=== PATIENT | male | born 1960 | race Caucasian/White ===

== ENCOUNTER 2025-02-27 20:20 | Emergency (ER) | payer OTHER, SELFPAY ==
[2025-02-27 20:22] VITALS: BP 147/79
[2025-02-27 23:51] VITALS: BP 138/79
--- NOTE | 2025-02-28 00:26 | ED.GENMED ---
History of Present Illness
General
Chief Complaint: Flank Pain
Source: patient
Exam Limitations: none
Time Seen by Provider: 02/28/25 00:24
Nursing documentation reviewed up to this point in time: agreed with
History of Present Illness
History of Present Illness:
Note:
CHIEF COMPLAINT(S)
Left-sided flank pain.
HISTORY OF PRESENT ILLNESS
The patient is a 64-year-old male with a past medical history of M�ni�re's disease, hypertension, hyperlipidemia presenting with right-sided pain, reminiscent of previous episodes involving kidney stones. This pain started this past day. The
initial onset of pain is described as being located in the upper back, which is distinct from the patients typical back aches related to overuse. The patient reports a history of previous kidney stones with associated urinary frequency but denies
prior urinary tract infections. Currently, there is no radiation of the pain to the front, and the patient has experienced nausea but denies actual vomiting. The pain has decreased in intensity compared to earlier, indicating possible resolution. No
recent heavy lifting or strain noted, and the patient denies any associated tenderness or muscle soreness upon touch. The patient felt fine yesterday with no similar discomfort. The patient reports chills but has not experienced fever, and they have
been drinking fluids as recommended by medical personnel. No significant discomfort upon recent bathroom visit. He originally presented to urgent care where they did blood work and a urinalysis as well as a plain film of the abdomen which was
concerning for renal stone.
EXTERNAL RECORDS REVIEWED
Reviewed patient first record from earlier today, please see scanned document from provider note section:
White blood cell count showed leukocytosis of 12
BMP done showed elevated BUN to creatinine ratio, did discuss IV fluids however patient reports that he would rather rehydrate orally
Urinalysis was done in urgent care however did opt to also obtain one here in the ER so that we can obtain reflex to culture
PHYSICAL EXAM
- Nursing notes reviewed and vital signs reviewed.
General: Patient is well appearing and in no acute distress; non-toxic
Skin: Warm and dry, no rashes or lesions
Head: Normocephalic, atraumatic
Eyes: Sclera non-icteric. EOMs intact.
Cardiac: Regular rate and rhythm, no murmurs
Peripheral Vascular: No lower extremity swelling or edema
Pulm: Normal respiratory effort, no wheezes, rales, rhonchi
Abdomen: No abdominal tenderness to palpation
Musculoskeletal: No CVA tenderness bilaterally
Neuro: CN II-XII intact, no focal neurologic deficits.
Psychiatric: Appropriate mood and affect.
PROBLEM LIST
Acute Problems:
- Left-sided flank pain
PLAN
- Continue hydration to aid in obtaining a urine sample for culture to rule out infection.
- If discomfort increases or further symptoms develop, consider imaging to check for kidney stones.
- Monitor for any signs of infection, particularly in the context of potential stone passage.
- Patient declined immediate pain medication at this time.
DIFFERENTIAL DIAGNOSIS
The Differential Diagnosis includes, in no particular order and is not limited to:
1. Renal colic due to kidney stones
2. Urinary tract infection
3. Pyelonephritis
4. Musculoskeletal pain
5. Retroperitoneal mass
6. Herpes Zoster
7. Gastrointestinal pathology such as pancreatitis
8. Abdominal aortic aneurysm
9. Intercostal neuralgia
10. Referred pain from spinal pathology
Patient is declining medication for pain and nausea at this time. Patient is declining IV fluids.
CHART REVIEW
No prior ER physician documentation or discharge summaries to review
MDM/DISPOSITION
The patient is a 64-year-old male with a past medical history of M�ni�re's disease, hypertension, hyperlipidemia presenting with right-sided flank pain. He is associate urinary frequency but no burning with urination, no fevers or chills. On
physical exam he is well-appearing in no acute distress. He has no abdominal tenderness, no CVA tenderness, he is afebrile. His urinalysis is not concerning for infection. His CAT scan shows a renal stone with mild hydronephrosis. Discussed
follow-up with urologestefanía and discussed use of Flomax. Patient stable for discharge.
Review of Systems
Review of Systems
All Other Systems: ROS reviewed and negative except as documented in HPI and ROS
Phy Exam
Physical Exam
Physical Exam:
see hpi
Course
Orders/Labs/Results
Orders:
Orders
02/28/25
CT Abd/pel Without Iv Or Oral Urgent
Comment: lab work done at urgent care, scanned into chart
Reason For Exam: right flank pain, hx stones
02/28/25 01:52
Urinalysis Reflex To Culture Urgent
Date Specimen was Collected: 02/28/25
Time Specimen was Collected: 01:50
Urine Microscopic Reflex Cult Urgent
Abnormal Lab Results
02/28/25
01:52
Urine Ketones 1+ A
(Negative)
Ur Occult Blood Reflex 3+ A
(Negative)
Urine RBC 3-6 A /HPF
(0-2)
Urine Bacteria (Reflex) Few A
(Negative)
Vital Signs
Initial and Last Documented VS:
Initial Vital Signs
Temp Pulse Resp BP Pulse Ox
99 F 76 20 147/79 100
02/27/25 20:22 02/27/25 20:22 02/27/25 20:22 02/27/25 20:22 02/27/25 20:22
Last Documented Vital Signs
Temp Pulse Resp BP Pulse Ox
99 F 65 16 135/68 99
02/27/25 20:22 02/28/25 02:32 02/28/25 02:32 02/28/25 02:32 02/28/25 02:32
*Pulse Oximetry
SaO2: 99
Oxygen Mode of Delivery: Room air
Patient hypoxic: no
*Critical Care Note
Total Time (30-74mins, 75-104mins- exclusive of procedures): Not Applicable
ED Attending Note
-
Portions of this chart may have been created with voice recognition software.� Occasional wrong word or��sound alike� substitutions may have occurred due to the inherent limitations of voice recognition software.
Discharge Plan
Departure
Patient Disposition: Home (Routine Discharge)
Date of Disposition: 02/28/25
Time of Disposition: 02:24
Patient with high blood pressure during this ER visit?: Yes
Condition: Good
Discharge Problem:
Kidney stone on right side
Instructions: Flank Pain (DC), How to Strain Your Urine, BLOOD PRESSURE
Prescriptions:
New
tamsulosin [Flomax] 0.4 mg capsule
0.4 mg PO DAILY Qty: 8 0RF
Referrals:
SHO ASHFORD PA [Family Provider, Family Practice]
Pavel Dougherty MD [Active, Urology] - Call in 1-3 days for appt
Activity Restrictions/Additional Instructions:
Flomax has been sent to her pharmacy. Please take 1 tablet once daily until stone passage.
PLEASE RETURN EMERGENCY DEPARTMENT SHOULD YOU DEVELOP AN ACUTE WORSENING OF YOUR PAIN, FEVERS OR CHILLS, BURNING WITH URINATION, ABDOMINAL PAIN, INTRACTABLE NAUSEA OR VOMITING, OR ANY OTHER SIGNS OR SYMPTOMS WORRISOME TO YOU.
Interventions
Interventions:
*Risk Screen - Suicide Last Done: 02/27/25 20:22
*General Assessment Last Done: 02/27/25 20:22
*Neglect/Abuse Screening Last Done: 02/27/25 20:22
*ED COVID-19 Vaccine History Last Done: 02/27/25 23:51
*Nursing Disposition Last Done: 02/28/25 02:32
NM-Kcuvbb-Rhaymavcop Assessment Last Done: 02/27/25 23:51
ED-Male Genitourinary Assessment Last Done: 02/27/25 23:51
Discharge Date and Time
Discharge Date/Time: 02/28/25 02:32
Print Language: IRISH
[2025-02-28 01:57] LABS: Urine Character Clear (Clear)
[2025-02-28 02:32] VITALS: BP 135/68
== END 2025-02-28 02:32 | disposition home or self-care (01) ==
LOC: EMR 20:20
PROVIDERS: Physician Assistant; EMERGENCY PHYSICIAN Emergency Medicine; FAMILY PHYSICIAN Physician Assistant
DX: N13.2 Hydronephrosis with renal and ureteral calculous obstruction (principal); E78.5 Hyperlipidemia, unspecified; I10 Essential (primary) hypertension
CPT/HCPCS: 99284; 74176; 81003; 81015

== ENCOUNTER 2025-04-14 06:14 | Day surgery (SDC) | payer OTHER, SELFPAY ==
--- NOTE | 2025-04-12 13:52 | PTCARENOTE ---
Dr Arriaza made aware of K 3.2, he ordered repeat lab morning of surgery.
[2025-04-14 10:23] VITALS: BMI 29.9
[2025-04-14 10:24] VITALS: BP 132/83; BMI 29.9
[2025-04-14] MEDS: NORMOSOL-R/PLASMALYTE-A 1000 IV (10:31)
[2025-04-14 10:41] LABS: Hematocrit 42.2 % (39.0-52.0); Hemoglobin 14.7 g/dL (13.0-18.0); Mean Corp Hgb Conc. 34.8 g/dL (33.0-37.0); Mean Corpuscular Volume 86.1 fL (80.0-94.0); Platelet Count 173 10^3/uL (130-400); Red Cell Dist. Width 12.7 % (11.5-14.5)
[2025-04-14 11:22] LABS: Potassium 4.2 mmol/L (3.5-5.1)
[2025-04-14 11:48] VITALS: BP 132/83; BP 134/77
[2025-04-14 12:00] VITALS: BP 138/77
[2025-04-14 12:15] VITALS: BP 135/76
[2025-04-14 12:45] VITALS: BP 136/90
== END 2025-04-14 13:08 | disposition home or self-care (01) ==
LOC: SDS 06:14
PROVIDERS: Anesthesiology; ATTENDING PHYSICIAN Specialist
DX: N20.1 Calculus of ureter (principal)
CPT/HCPCS: 52356; 74018; 76000; 82365; 84132; 85027; 93005; C2617